=== PATIENT | male | born 1970 | race Caucasian/White ===

== ENCOUNTER 2021-10-04 10:15 | Emergency (ER) | payer BC, SELFPAY ==
[2021-10-04] MEDS ORDERED: Sodium Chloride 0.9% 1,000 ML ONE (10:38)
[2021-10-04 10:43] LABS: #Basophils 0.1 thou/uL (0.0-0.2); #Eosinphils 0.2 thou/uL (0.0-0.7); #Lymphocytes 1.2 thou/uL (1.20-3.40); #Monocytes 0.3 thou/uL (0.11-0.59); #Neutrophils 2.8 thou/uL (1.40-6.50); %Basophils 1.5 % (0.0-1.0); %Eosinophils 4.8 % (0.0-10.0); %Lymphocytes 26.1 % (21.0-51.0); %Neutrophils 60.7 % (42.0-75.0); Hemoglobin 15.6 g/dL (14.0-18.0); Mean Corpuscular HGB CONC 32.4 g/dL (32.0-36.0); Mean Corpuscular Hemoglobin 28.4 pg (27.0-31.0); Mean Corpuscular Volume 87.6 fL (78.0-98.0); Mean Platelet Volume 9.5 fL (7.4-10.4); Platelet Count 182 thou/uL (130-400); RBC Distribution Width 11.8 % (11.5-14.5); Red Blood Cell (RBC) Count 5.48 mill/uL (4.70-6.10); White Blood Cell (WBC) Count 4.6 thou/uL (4.8-10.8)
[2021-10-04 10:52] LABS: INR-International Normal Ratio 0.9; Prothrombin Time 12.7 sec (12.0-14.7)
[2021-10-04 10:53] LABS: PTT 28.8 sec (22.9-36.1)
[2021-10-04 10:56] LABS: CKMB 1.4 ng/mL (0-6.6); D-Dimer Test 0.29 *mcg/mL (0.27-0.43); Lipase 45 U/L (8-78); Magnesium 1.9 mg/dL (1.6-2.6)
[2021-10-04 11:08] LABS: ALT (SGPT) 27 U/L (8-55); AST (SGOT) 22 U/L (5-34); Albumin 4.2 g/dL (3.5-5.0); Alkaline Phosphatase 80 U/L (40-110); Anion Gap 17 mmol/L (10-20); BUN (Urea Nitrogen) 12 mg/dL (8.4-25.7); Bilirubin, Total 0.5 mg/dL (0.2-1.2); Calc. Creatinine Clearance 0 mL/min (70-130); Calcium 9.2 mg/dL (7.8-10.44); Carbon Dioxide 22 mmol/L (22-29); Chloride 104 mmol/L (98-107); Globulin 3.2 g/dL (2.4-3.5); Glucose 120 mg/dL (70-105); Potassium 4.3 mmol/L (3.5-5.1); Protein, Total 7.4 g/dL (6.0-8.3); Sodium 139 mmol/L (136-145)
[2021-10-04] MEDS ORDERED: Acetaminophen 500 MG TAB ONE (13:54)
[2021-10-04 14:26] LABS: Acetaminophen Less than 10.0 mcg/mL (10.0-30.0)
== END 2021-10-04 13:09 | disposition short-term general hospital (02) ==
LOC: MADERS 10:15
DX: R07.89 Other chest pain (principal); R00.0 Tachycardia, unspecified
CPT/HCPCS: 71045; 80053; 80143; 82553; 83690; 83735; 83880; 84484; 85025; 85379; 85610; 85730; 93005; 94760; 80307; J7050